=== PATIENT | female | born 1985 | race Caucasian/White ===

== ENCOUNTER 2016-07-06 09:24 | Emergency (ER) | payer BC, OTHER ==
--- NOTE | 2016-07-06 10:44 | EDDOCDS ---
Nurse's Notes [facility] Name: Chapis Crain Age: 31 yrs Sex: Female : 1985 Arrival Date: 07/06/2016 Time: 09:24 Bed TR7 Private MD: Linh Johnson N. Diagnosis: Carpal tunnel syndrome-right greater than left Presentation: 07/06 09:38 Presenting complaint: Patient states: Bilateral hand and arms numbness intermittent in mlb1 both feet began after shoveling snow two days ago. Adult Sepsis Screening: The patient does not have new or worsening altered mentation. Patient's respiratory rate is less than 22. Systolic blood pressure is greater than 100. Patient has a qSOFA score of 0- Negative Sepsis Screen. Suicide/Homicide risk assessment- the patient denies having any suicidal and/or homicidal ideations and does not present with any other emotional, behavioral or mental health complaints. Status: Patient is not a job service specialist or dependent. Transition of care: patient was not received from another setting of care. 09:38 Acuity: VEENA Level 3 mlb1 09:38 Method Of Arrival: Walkin/Carried/Asstd mlb1 Triage Assessment: 09:40 General: Appears in no apparent distress, Behavior is appropriate for age, cooperative. mlb1 Pain: Denies pain. Pt Declines HIV testing. Neurological: Reports bilateral arm and hand numbness. 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 multivitamin Oral tab 1 tablet daily - PMHx: none; - PSHx: partial hysterectomy; Tubal ligation; - Social history: Smoking status: Patient states was never smoker of tobacco. No barriers to communication noted, The patient speaks fluent Nepali, Speaks appropriately for age. - Family history: Not pertinent. - : The pt / caregiver states he / she is not on anticoagulants. Home medication list is obtained from the patient. - Exposure Risk Screening:: None identified. Screenin:42 Screening information is obtained from the patient. Fall risk: No risks identified. mlb1 Assistance ADL's: requires no assistance with activities of daily living. Abuse/DV Screen: The patient / caregiver reports he/she is: not in a situation that causes fear, pain or injury. Nutritional screening: No deficits noted. Advance Directives: Currently, there is no health care proxy. home support is adequate. Assessment: 10:41 General: Appears in no apparent distress, Behavior is appropriate for age, cooperative. mlb1 Pain: Denies pain. Musculoskeletal: Circulation, motion, and sensation intact Capillary refill < 3 seconds is brisk in bilateral fingers Range of motion intact in all extremities. Vital Signs: 09:28 BP 134 / 68 RA Sitting (auto/reg); Pulse 72; Resp 18; Temp 98.5(O); Pulse Ox 100% ; jrd Weight 83.91 kg (R); Height 5 ft. 3 in. (160.02 cm); Pain 0/10; 09:28 Body Mass Index 32.77 (83.91 kg, 160.02 cm) [facility] Vitals: 09:28 Log In Time: July 06, 2016 at 09:20. [facility] ED Course: 09:25 Patient visited by Asa Rodgers PCA. jrd 09:25 Patient moved to Waiting jrd 09:27 Linh Johnson is Private Physician. jrd 09:27 Patient visited by Asa Rodgers PCA. jrd 09:27 Patient moved to Pre RCE jrd 09:29 Patient visited by Asa Rodgers PCA. jrd 09:37 Patient visited by Florentin Mann RN. mlb1 09:39 Triage Initiated mlb1 09:40 Patient visited by Florentin Mann RN. mlb1 09:55 Patient moved to Triage 1 ct3 09:57 [facility] ar2 09:57 Domingo Baron MD is Attending Physician. ar2 10:13 Patient visited by Hamilton Ragsdael PA-C. ar2 10:35 Linh Johnson is Referral Physician. ar2 10:42 Patient moved to TR7 ct3 10:42 No IV's were initiated during this patient's visit. No procedures done that require mlb1 assistance. 10:43 Patient visited by Florentin Mann RN. mlb1 10:43 The patient / caregiver is instructed regarding the plan of care and ED course. mlb1 Order Results: There are currently no results for this order. Outcome: 10:35 Discharge ordered by Provider. ar2 10:43 Discharge Assessment: Patient awake, alert and oriented x 3. No cognitive and/or mlb1 functional deficits noted. Patient verbalized understanding of disposition instructions. patient administered narcotics - no. The following High Risk Discharge criteria are identified: None. Discharged to home ambulatory. Condition: good. Discharge instructions given to patient, Instructed on discharge instructions, follow up and referral plans. medication usage, Demonstrated understanding of instructions, medications, Pt was receptive of discharge instructions/ teaching. Prescriptions given X 1. No special radiology studies were completed. Property sent home with patient. 10:43 Patient left the ED. mlb1 Signatures: Florentin Mann RN RN mlb1 Hamilton Ragsdale, MICH PA-C ar2 Milena Garcia, MEDICAL FRONT DESK COORDINATOR MEDICAL FRONT DESK COORDINATOR ct3 Asa Rodgers, MEDICAL FRONT DESK COORDINATOR MEDICAL FRONT DESK COORDINATOR jrd MTDD
--- NOTE | 2016-07-06 10:44 | EDDOCDS ---
Physician Documentation [facility] Name: Chapis Crain Age: 31 yrs Sex: Female : 1985 Arrival Date: 07/06/2016 Time: 09:24 Bed TR7 Private MD: Linh Johnson N. Disposition: 07/06/16 10:35 Discharged to Home/Self Care. Impression: Carpal tunnel syndrome - right greater than left. - Condition is Stable. - Discharge Instructions: Carpal Tunnel Syndrome. - Prescriptions for Naprosyn 500 mg Oral Tablet - take 1 tablet by ORAL route 2 times per day take with food; 30 tablet. - Medication Reconciliation, Local Pharmacy Hours form. - Follow up: Linh Johnson; When: 1 week; Reason: Recheck today's complaints. Follow up: Emergency Department; When: As needed; Reason: Worsening of conditions. - Problem is new. - Symptoms are unchanged. Historical: - Allergies: Strawberries; - Home Meds: 1. multivitamin Oral tab 1 tablet daily - PMHx: none; - PSHx: partial hysterectomy; Tubal ligation; - Social history: Smoking status: Patient states was never smoker of tobacco. No barriers to communication noted, The patient speaks fluent Icelandic, Speaks appropriately for age. - Family history: Not pertinent. - : The pt / caregiver states he / she is not on anticoagulants. Home medication list is obtained from the patient. - Exposure Risk Screening:: None identified. 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 3 in. (160.02 cm); Pain 0/10; 09:28 Body Mass Index 32.77 (83.91 kg, 160.02 cm) jrd Signatures: Florentin Mann RN RN mlb1 Hamilton Ragsdale PA-C PA-C ar2 MTDD
--- NOTE | 2016-07-08 11:44 | EDDOCDS ---
Physician Documentation [facility] Name: Chapis Crain Age: 31 yrs Sex: Female : 1985 Arrival Date: 07/06/2016 Time: 09:24 Bed TR7 Private MD: Linh Johnson N. Disposition: 07/06/16 10:35 Discharged to Home/Self Care. Impression: Carpal tunnel syndrome - right greater than left. - Condition is Stable. - Discharge Instructions: Carpal Tunnel Syndrome. - Prescriptions for Naprosyn 500 mg Oral Tablet - take 1 tablet by ORAL route 2 times per day take with food; 30 tablet. - Medication Reconciliation, Local Pharmacy Hours form. - Follow up: Linh Johnson; When: 1 week; Reason: Recheck today's complaints. Follow up: Emergency Department; When: As needed; Reason: Worsening of conditions. - Problem is new. - Symptoms are unchanged. Historical: - Allergies: Strawberries; - Home Meds: 1. multivitamin Oral tab 1 tablet daily - PMHx: none; - PSHx: partial hysterectomy; Tubal ligation; - Social history: Smoking status: Patient states was never smoker of tobacco. No barriers to communication noted, The patient speaks fluent Hungarian, Speaks appropriately for age. - Family history: Not pertinent. - : The pt / caregiver states he / she is not on anticoagulants. Home medication list is obtained from the patient. - Exposure Risk Screening:: None identified. 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 3 in. (160.02 cm); Pain 0/10; 09:28 Body Mass Index 32.77 (83.91 kg, 160.02 cm) jrd MDM: 11:01 [facility] Payment Agreement was scanned into [employer] ? and attached to record. lg Signatures: Olman Knutson, Reg Reg lg Florentin Mann RN RN mlb1 Hamilton Ragsdale, KYRIEC PAMikeC ar2 The chart was reviewed and I authenticate all verbal orders and agree with the evaluation and treatment provided.Attachments: 11:01 [facility] Payment Agreement lg Chart Complete MTDD
--- NOTE | 2016-07-08 11:44 | EDDOCDS ---
Physician Documentation [facility] Name: Chapis Crain Age: 31 yrs Sex: Female : 1985 Arrival Date: 07/06/2016 Time: 09:24 Bed TR7 Private MD: Linh Johnson N. Disposition: 07/06/16 10:35 Discharged to Home/Self Care. Impression: Carpal tunnel syndrome - right greater than left. - Condition is Stable. - Discharge Instructions: Carpal Tunnel Syndrome. - Prescriptions for Naprosyn 500 mg Oral Tablet - take 1 tablet by ORAL route 2 times per day take with food; 30 tablet. - Medication Reconciliation, Local Pharmacy Hours form. - Follow up: Linh Johnson; When: 1 week; Reason: Recheck today's complaints. Follow up: Emergency Department; When: As needed; Reason: Worsening of conditions. - Problem is new. - Symptoms are unchanged. Historical: - Allergies: Strawberries; - Home Meds: 1. multivitamin Oral tab 1 tablet daily - PMHx: none; - PSHx: partial hysterectomy; Tubal ligation; - Social history: Smoking status: Patient states was never smoker of tobacco. No barriers to communication noted, The patient speaks fluent Uzbek, Speaks appropriately for age. - Family history: Not pertinent. - : The pt / caregiver states he / she is not on anticoagulants. Home medication list is obtained from the patient. - Exposure Risk Screening:: None identified. 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 3 in. (160.02 cm); Pain 0/10; 09:28 Body Mass Index 32.77 (83.91 kg, 160.02 cm) jrd MDM: 11:01 [facility] Payment Agreement was scanned into [employer] and attached to record. lg Signatures: Olman Knutson, Reg Reg lg Florentin Mann RN RN mlb1 Hamilton Ragsdale, KYRIEC PAMikeC ar2 The chart was reviewed and I authenticate all verbal orders and agree with the evaluation and treatment provided.Attachments: 11:01 [facility] Payment Agreement lg Chart Complete MTDD
--- NOTE | 2016-07-08 11:45 | EDDOCDS ---
Nurse's Notes [facility] Name: Chapis Crain Age: 31 yrs Sex: Female : 1985 Arrival Date: 07/06/2016 Time: 09:24 Bed TR7 Private MD: Linh Johnson N. Diagnosis: Carpal tunnel syndrome-right greater than left Presentation: 07/06 09:38 Presenting complaint: Patient states: Bilateral hand and arms numbness intermittent in mlb1 both feet began after shoveling snow two days ago. Adult Sepsis Screening: The patient does not have new or worsening altered mentation. Patient's respiratory rate is less than 22. Systolic blood pressure is greater than 100. Patient has a qSOFA score of 0- Negative Sepsis Screen. Suicide/Homicide risk assessment- the patient denies having any suicidal and/or homicidal ideations and does not present with any other emotional, behavioral or mental health complaints. Status: Patient is not a central service supply distributor or dependent. Transition of care: patient was not received from another setting of care. 09:38 Acuity: VEENA Level 3 mlb1 09:38 Method Of Arrival: Walkin/Carried/Asstd mlb1 Triage Assessment: 09:40 General: Appears in no apparent distress, Behavior is appropriate for age, cooperative. mlb1 Pain: Denies pain. Pt Declines HIV testing. Neurological: Reports bilateral arm and hand numbness. 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 multivitamin Oral tab 1 tablet daily - PMHx: none; - PSHx: partial hysterectomy; Tubal ligation; - Social history: Smoking status: Patient states was never smoker of tobacco. No barriers to communication noted, The patient speaks fluent Slovak, Speaks appropriately for age. - Family history: Not pertinent. - : The pt / caregiver states he / she is not on anticoagulants. Home medication list is obtained from the patient. - Exposure Risk Screening:: None identified. Screenin:42 Screening information is obtained from the patient. Fall risk: No risks identified. mlb1 Assistance ADL's: requires no assistance with activities of daily living. Abuse/DV Screen: The patient / caregiver reports he/she is: not in a situation that causes fear, pain or injury. Nutritional screening: No deficits noted. Advance Directives: Currently, there is no health care proxy. home support is adequate. Assessment: 10:41 General: Appears in no apparent distress, Behavior is appropriate for age, cooperative. mlb1 Pain: Denies pain. Musculoskeletal: Circulation, motion, and sensation intact Capillary refill < 3 seconds is brisk in bilateral fingers Range of motion intact in all extremities. Vital Signs: 09:28 BP 134 / 68 RA Sitting (auto/reg); Pulse 72; Resp 18; Temp 98.5(O); Pulse Ox 100% ; jrd Weight 83.91 kg (R); Height 5 ft. 3 in. (160.02 cm); Pain 0/10; 09:28 Body Mass Index 32.77 (83.91 kg, 160.02 cm) [facility] Vitals: 09:28 Log In Time: July 06, 2016 at 09:20. [facility] ED Course: 09:25 Patient visited by Asa Rodgers PCA. jrd 09:25 Patient moved to Waiting jrd 09:27 Linh Johnson is Private Physician. jrd 09:27 Patient visited by Asa Rodgers PCA. jrd 09:27 Patient moved to Pre RCE jrd 09:29 Patient visited by Asa Rodgers PCA. jrd 09:37 Patient visited by Florentin Mann RN. mlb1 09:39 Triage Initiated mlb1 09:40 Patient visited by Florentin Mann RN. mlb1 09:55 Patient moved to Triage 1 ct3 09:57 Hamilton Ragsdale [facility] ar2 09:57 Domingo Baron MD is Attending Physician. ar2 10:13 Patient visited by Hamilton Ragsdale PA-C. ar2 10:35 Linh Johnson is Referral Physician. ar2 10:42 Patient moved to TR7 ct3 10:42 No IV's were initiated during this patient's visit. No procedures done that require mlb1 assistance. 10:43 Patient visited by Florentin Mann RN. mlb1 10:43 The patient / caregiver is instructed regarding the plan of care and ED course. mlb1 11:01 [facility] [place] was [place] into [employer] and attached to record. lg Order Results: There are currently no results for this order. Outcome: 10:35 Discharge ordered by Provider. ar2 10:43 Discharge Assessment: Patient awake, alert and oriented x 3. No cognitive and/or mlb1 functional deficits noted. Patient verbalized understanding of disposition instructions. patient administered narcotics - no. The following High Risk Discharge criteria are identified: None. Discharged to home ambulatory. Condition: good. Discharge instructions given to patient, Instructed on discharge instructions, follow up and referral plans. medication usage, Demonstrated understanding of instructions, medications, Pt was receptive of discharge instructions/ teaching. Prescriptions given X 1. No special radiology studies were completed. Property sent home with patient. 10:43 Patient left the ED. mlb1 Signatures: Olman Knutson, Reg Reg lg Florentin Mann RN RN mlb1 Hamilton Ragsdale, PA-C PA-C ar2 Milena Garcia, CANT HOOKER CANT HOOKER ct3 Asa Rodgers, CANT HOOKER CANT HOOKER jrd Chart Complete MTDD
--- NOTE | 2016-07-20 10:26 | EDDOCDS ---
Physician Documentation [facility] Name: Chapis Crain Age: 31 yrs Sex: Female : 1985 Arrival Date: 07/06/2016 Time: 09:24 Bed TR7 Private MD: Linh Johnson N. Disposition: 07/06/16 10:35 Discharged to Home/Self Care. Impression: Carpal tunnel syndrome - right greater than left. - Condition is Stable. - Discharge Instructions: Carpal Tunnel Syndrome. - Prescriptions for Naprosyn 500 mg Oral Tablet - take 1 tablet by ORAL route 2 times per day take with food; 30 tablet. - Medication Reconciliation, Local Pharmacy Hours form. - Follow up: Linh Johnson; When: 1 week; Reason: Recheck today's complaints. Follow up: Emergency Department; When: As needed; Reason: Worsening of conditions. - Problem is new. - Symptoms are unchanged. Historical: - Allergies: Strawberries; - Home Meds: 1. multivitamin Oral tab 1 tablet daily - PMHx: none; - PSHx: partial hysterectomy; Tubal ligation; - Social history: Smoking status: Patient states was never smoker of tobacco. No barriers to communication noted, The patient speaks fluent Kyrgyz, Speaks appropriately for age. - Family history: Not pertinent. - : The pt / caregiver states he / she is not on anticoagulants. Home medication list is obtained from the patient. - Exposure Risk Screening:: None identified. 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 3 in. (160.02 cm); Pain 0/10; 09:28 Body Mass Index 32.77 (83.91 kg, 160.02 cm) jrd MDM: 11:01 [facility] Payment Agreement was scanned into [employer] and attached to record. lg Signatures: Olman Knutson, Reg Reg lg Florentin Mann RN RN mlb1 Hamilton Ragsdale, KYRIEC PAMikeC ar2 The chart was reviewed and I authenticate all verbal orders and agree with the evaluation and treatment provided.Attachments: 11:01 [facility] Payment Agreement lg Chart Complete MTDD
--- NOTE | 2016-07-20 10:26 | EDDOCDS ---
Nurse's Notes [facility] Name: Chapis Crain Age: 31 yrs Sex: Female : 1985 Arrival Date: 07/06/2016 Time: 09:24 Bed TR7 Private MD: Linh Johnson N. Diagnosis: Carpal tunnel syndrome-right greater than left Presentation: 07/06 09:38 Presenting complaint: Patient states: Bilateral hand and arms numbness intermittent in mlb1 both feet began after shoveling snow two days ago. Adult Sepsis Screening: The patient does not have new or worsening altered mentation. Patient's respiratory rate is less than 22. Systolic blood pressure is greater than 100. Patient has a qSOFA score of 0- Negative Sepsis Screen. Suicide/Homicide risk assessment- the patient denies having any suicidal and/or homicidal ideations and does not present with any other emotional, behavioral or mental health complaints. Status: Patient is not a director of child welfare services or dependent. Transition of care: patient was not received from another setting of care. 09:38 Acuity: VEENA Level 3 mlb1 09:38 Method Of Arrival: Walkin/Carried/Asstd mlb1 Triage Assessment: 09:40 General: Appears in no apparent distress, Behavior is appropriate for age, cooperative. mlb1 Pain: Denies pain. Pt Declines HIV testing. Neurological: Reports bilateral arm and hand numbness. 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 multivitamin Oral tab 1 tablet daily - PMHx: none; - PSHx: partial hysterectomy; Tubal ligation; - Social history: Smoking status: Patient states was never smoker of tobacco. No barriers to communication noted, The patient speaks fluent Mongolian, Speaks appropriately for age. - Family history: Not pertinent. - : The pt / caregiver states he / she is not on anticoagulants. Home medication list is obtained from the patient. - Exposure Risk Screening:: None identified. Screenin:42 Screening information is obtained from the patient. Fall risk: No risks identified. mlb1 Assistance ADL's: requires no assistance with activities of daily living. Abuse/DV Screen: The patient / caregiver reports he/she is: not in a situation that causes fear, pain or injury. Nutritional screening: No deficits noted. Advance Directives: Currently, there is no health care proxy. home support is adequate. Assessment: 10:41 General: Appears in no apparent distress, Behavior is appropriate for age, cooperative. mlb1 Pain: Denies pain. Musculoskeletal: Circulation, motion, and sensation intact Capillary refill < 3 seconds is brisk in bilateral fingers Range of motion intact in all extremities. Vital Signs: 09:28 BP 134 / 68 RA Sitting (auto/reg); Pulse 72; Resp 18; Temp 98.5(O); Pulse Ox 100% ; jrd Weight 83.91 kg (R); Height 5 ft. 3 in. (160.02 cm); Pain 0/10; 09:28 Body Mass Index 32.77 (83.91 kg, 160.02 cm) [facility] Vitals: 09:28 Log In Time: July 06, 2016 at 09:20. [facility] ED Course: 09:25 Patient visited by Asa Rodgers PCA. jrd 09:25 Patient moved to Waiting jrd 09:27 Linh Johnson is Private Physician. jrd 09:27 Patient visited by Asa Rodgers PCA. jrd 09:27 Patient moved to Pre RCE jrd 09:29 Patient visited by Asa Rodgers PCA. jrd 09:37 Patient visited by Florentin Mann RN. mlb1 09:39 Triage Initiated mlb1 09:40 Patient visited by Florentin Mann RN. mlb1 09:55 Patient moved to Triage 1 ct3 09:57 Hamilton [facility] ar2 09:57 Domingo Baron MD is Attending Physician. ar2 10:13 Patient visited by Hamilton Ragsdale PA-C. ar2 10:35 Linh Johnson is Referral Physician. ar2 10:42 Patient moved to TR7 ct3 10:42 No IV's were initiated during this patient's visit. No procedures done that require mlb1 assistance. 10:43 Patient visited by Florentin Mann RN. mlb1 10:43 The patient / caregiver is instructed regarding the plan of care and ED course. mlb1 11:01 [facility] [place] was scanned into [employer] and attached to record. lg Order Results: There are currently no results for this order. Outcome: 10:35 Discharge ordered by Provider. ar2 10:43 Discharge Assessment: Patient awake, alert and oriented x 3. No cognitive and/or mlb1 functional deficits noted. Patient verbalized understanding of disposition instructions. patient administered narcotics - no. The following High Risk Discharge criteria are identified: None. Discharged to home ambulatory. Condition: good. Discharge instructions given to patient, Instructed on discharge instructions, follow up and referral plans. medication usage, Demonstrated understanding of instructions, medications, Pt was receptive of discharge instructions/ teaching. Prescriptions given X 1. No special radiology studies were completed. Property sent home with patient. 10:43 Patient left the ED. mlb1 Signatures: Olman Knutson, Reg Reg lg Florentin Mann RN RN mlb1 Hamilton Ragsdale, PA-C PA-C ar2 Milena Garcia, LABORATORY SAMPLER LABORATORY SAMPLER ct3 Asa Rodgers, LABORATORY SAMPLER LABORATORY SAMPLER jrd Chart Complete MTDD
--- NOTE | 2016-07-20 10:26 | EDDOCDS ---
Physician Documentation [facility] Name: Chapis Crain Age: 31 yrs Sex: Female : 1985 Arrival Date: 07/06/2016 Time: 09:24 Bed TR7 Private MD: Linh Johnson N. Disposition: 07/06/16 10:35 Discharged to Home/Self Care. Impression: Carpal tunnel syndrome - right greater than left. - Condition is Stable. - Discharge Instructions: Carpal Tunnel Syndrome. - Prescriptions for Naprosyn 500 mg Oral Tablet - take 1 tablet by ORAL route 2 times per day take with food; 30 tablet. - Medication Reconciliation, Local Pharmacy Hours form. - Follow up: Linh Johnson; When: 1 week; Reason: Recheck today's complaints. Follow up: Emergency Department; When: As needed; Reason: Worsening of conditions. - Problem is new. - Symptoms are unchanged. Historical: - Allergies: Strawberries; - Home Meds: 1. multivitamin Oral tab 1 tablet daily - PMHx: none; - PSHx: partial hysterectomy; Tubal ligation; - Social history: Smoking status: Patient states was never smoker of tobacco. No barriers to communication noted, The patient speaks fluent Macedonian, Speaks appropriately for age. - Family history: Not pertinent. - : The pt / caregiver states he / she is not on anticoagulants. Home medication list is obtained from the patient. - Exposure Risk Screening:: None identified. [employer]: 07/06 09:40 LMP N/A - Hysterectomy mlb1 Vital Signs: 09:28 BP 134 / 68 RA Sitting (auto/reg); Pulse 72; Resp 18; Temp 98.5(O); Pulse Ox 100% ; jrd Weight 83.91 kg / 184.99 lbs (R); Height 5 ft. 3 in. (160.02 cm); Pain 0/10; 09:28 Body Mass Index 32.77 (83.91 kg, 160.02 cm) jrd MDM: 11:01 [facility] Payment Agreement was scanned into [employer] and attached to record. lg Signatures: Olman Knutson, Reg Reg lg Florentin Mann RN RN mlb1 Hamilton Ragsdale, KYRIEC PAMikeC ar2 The chart was reviewed and I authenticate all verbal orders and agree with the evaluation and treatment provided.Attachments: 11:01 [facility] Payment Agreement lg Chart Complete MTDD
== END 2016-07-06 10:43 | disposition home or self-care (01) ==
LOC: M ED 09:24
DX: G56.03 Carpal tunnel syndrome, bilateral upper limbs (principal); Z91.018 Allergy to other foods

== ENCOUNTER → 2017-03-13 | Outpatient (REF) | payer BC, OTHER ==
[2017-03-13 13:21] LABS: ALBUMIN 3.8 GM/DL (3.2-5.2); ALBUMIN/GLOBULIN RATIO 1.27 (1.00-1.93); ALKALINE PHOSPHATASE 57 U/L (45-117); ALT/SGPT 21 U/L (12-78); ANION GAP 7 MEQ/L (8-16); AST/SGOT 6 U/L (15-37); BILIRUBIN,TOTAL 0.8 MG/DL (0.2-1.0); BLOOD UREA NITROGEN 15 MG/DL (7-18); CARBON DIOXIDE LEVEL 28 MEQ/L (21-32); CHLORIDE LEVEL 105 MEQ/L (98-107); CHOLESTEROL LEVEL 221 MG/DL (<200); CREATININE FOR GFR 0.54 MG/DL (0.55-1.02); GLOMERULAR FILTRATION RATE > 60.0 (>60); GLUCOSE, FASTING 90 MG/DL (70-105); POTASSIUM SERUM 4.8 MEQ/L (3.5-5.1); SODIUM LEVEL 140 MEQ/L (136-145); TOTAL PROTEIN 6.8 GM/DL (6.4-8.2); TRIGLYCERIDES LEVEL 100 MG/DL (<150)
== END ==
LOC: M SFHCADAM 10:44
PROVIDERS: ATTEND Physician Assistant Medical
DX: E66.09 Other obesity due to excess calories (principal)

== ENCOUNTER 2017-03-17 19:32 | Emergency (ER) | payer BC, OTHER ==
[~2017-03-17] VITALS: Ht 157.5 cm; Wt 88.6 kg
[2017-03-17 21:08] LABS: BASO % 0.2 % (0.0-1.0); EOS # 0.1 10^3/uL (0.0-0.50); EOS % 0.8 % (0.0-3.0); IMMATURE GRANULOCYTE % 0.3 % (0-0); LYMPH % 20.3 % (24.0-44.0); MEAN CORPUSCULAR HEMOGLOBIN 29.8 pg (27.0-33.0); MEAN CORPUSCULAR HGB CONC 33.5 g/dl (32.0-36.5); MEAN CORPUSCULAR VOLUME 88.9 fl (80.0-96.0); MONO # 0.6 10^3/uL (0.0-0.8); MONO % 5.6 % (0.0-5.0); NEUTROPHILS # 7.2 10^3/uL (1.8-7.7); NEUTROPHILS % 72.8 % (36.0-66.0); PLATELET COUNT, AUTOMATED 269 10^3/uL (150-450); RED CELL DISTRIBUTION WIDTH 12.1 % (11.5-14.5); WHITE BLOOD COUNT 9.9 10^3/uL (4.0-10.0)
[2017-03-17 21:39] LABS: ANION GAP 5 MEQ/L (8-16); BLOOD UREA NITROGEN 18 MG/DL (7-18); CALCIUM LEVEL 8.8 MG/DL (8.5-10.1); CARBON DIOXIDE LEVEL 29 MEQ/L (21-32); CHLORIDE LEVEL 107 MEQ/L (98-107); CREATININE FOR GFR 0.46 MG/DL (0.55-1.02); GLOMERULAR FILTRATION RATE > 60.0 (>60); GLUCOSE, FASTING 119 MG/DL (70-105); POTASSIUM SERUM 3.5 MEQ/L (3.5-5.1); SODIUM LEVEL 141 MEQ/L (136-145)
[2017-03-17 21:46] LABS: ABG BASE EXCESS 0.9 (-2.0-2.0); ABG HCO3 25.1 MEQ/L (22.0-26.0); ABG PARTIAL PRESSURE CO2 38.6 mmHg (35.0-45.0); ABG STANDARD HCO3 25.3 MEQ/L (22.0-26.0); ABG TOTAL CO2 26.3 MEQ/L (22.0-29.0); ABG pH (ARTERIAL) 7.431 UNITS (7.350-7.450)
[2017-03-17 22:19] VITALS: BP 134/81
--- NOTE | 2017-03-18 05:59 | ECGEPIP ---
Stationary ECG Study [facility] [place] - ED Test Date: 2017-03-17 Pat Name: SHAHRZAD PRICE Department: Room: - Gender: F [employer]: leonel : 1985 Requested By: PIPPA MCCARTY Order Number: [id number] Reading MD: Baltazar Prasad Measurements Intervals [place] Rate: 82 P: 13 FL: 158 QRS: 44 QRSD: 103 T: 17 QT: 363 QTc: 424 Interpretive Statements SINUS RHYTHM WITH SINUS ARRHYTHMIA ST DEVIATION AND MODERATE T-WAVE ABNORMALITY, CONSIDER ANTERIOR ISCHEMIA NO PRIORS Electronically Signed On 03-18-2017 5:59:38 EDT by Baltazar Prasad
--- NOTE | 2017-03-18 08:21 | REP ---
PA and lateral chest: The lung dia are clear. The cardiac size is normal The saul, mediastinum, and bony thorax are unremarkable. Impression: Negative PA and lateral chest. Signed by Diomedes Higginbotham MD 03/18/2017 08:12 A
== END 2017-03-17 22:26 | disposition home or self-care (01) ==
LOC: M ED 19:32
DX: R00.2 Palpitations (principal); Z91.018 Allergy to other foods

== ENCOUNTER → 2017-03-20 | Outpatient (REF) | payer OTHER ==
[2017-03-20 21:46] LABS: FREE T4 1.01 NG/DL (0.76-1.46)
== END ==
LOC: M SFHCADAM 13:31
PROVIDERS: ATTEND Physician Assistant Medical
DX: R00.2 Palpitations (principal)

== ENCOUNTER 2017-07-02 21:11 | Emergency (ER) | payer BC, OTHER ==
[2017-07-02] MEDS: IBUPROFEN 400 MG TAB PO (21:42)
[2017-07-02] MEDS: PERCOCET 5MG/325MG TAB PO (21:42)
[2017-07-02] MEDS: NORCO 5/325MG TABLET (BULK FOR ED) PO (22:37)
== END 2017-07-02 22:45 | disposition home or self-care (01) ==
LOC: M ED 21:11
DX: S83.412A Sprain of medial collateral ligament of left knee, initial encounter (principal); X50.9XXA Other and unspecified overexertion or strenuous movements or postures, initial encounter; Y92.009 Unspecified place in unspecified non-institutional (private) residence as the place of occurrence of the external cause; Z91.018 Allergy to other foods
CPT/HCPCS: 73564

== ENCOUNTER → 2018-04-17 | Outpatient (REF) | payer OTHER | LOC: M LAB REF 16:24 | DX: R30.0 Dysuria (principal) | CPT/HCPCS: 87086 ==

== ENCOUNTER → 2018-05-13 | Outpatient (REF) | payer OTHER ==
[~2018-05-13] MED LIST: NORCOTAB PO; VITA50005
== END ==
LOC: M LAB REF 12:30
PROVIDERS: ATTEND Physician Assistant Medical
DX: J02.9 Acute pharyngitis, unspecified (principal)

== ENCOUNTER → 2018-06-06 | Outpatient (REF) | payer OTHER ==
[2018-06-06 13:04] LABS: ALBUMIN 3.9 GM/DL (3.2-5.2); ALT/SGPT 26 U/L (12-78); BILIRUBIN,TOTAL 1.1 MG/DL (0.2-1.0); BLOOD UREA NITROGEN 13 MG/DL (7-18); CALCIUM LEVEL 8.7 MG/DL (8.5-10.1); CARBON DIOXIDE LEVEL 26 MEQ/L (21-32); CHLORIDE LEVEL 106 MEQ/L (98-107); CHOLESTEROL LEVEL 218 MG/DL (<200); CHOLESTEROL RISK RATIO 5.317 (<5); CREATININE FOR GFR 0.59 MG/DL (0.55-1.30); GLOMERULAR FILTRATION RATE > 60.0 (>60); GLUCOSE, FASTING 89 MG/DL (70-100); HDL CHOLESTEROL 41 MG/DL (>40); LDL CHOLESTEROL 148 MG/DL (<100); NON-HDL-C 177 MG/DL; POTASSIUM SERUM 3.9 MEQ/L (3.5-5.1); SODIUM LEVEL 139 MEQ/L (136-145); TOTAL PROTEIN 6.5 GM/DL (6.4-8.2); TRIGLYCERIDES LEVEL 145 MG/DL (<150)
[2018-06-06 13:12] LABS: TOTAL 25(OH) VITAMIN D 16.2 NG/ML (30.0-100.0)
== END ==
LOC: M SFHCADAM 08:15
PROVIDERS: ATTEND Physician Assistant Medical
DX: E55.9 Vitamin D deficiency, unspecified (principal); E78.2 Mixed hyperlipidemia

== ENCOUNTER → 2018-09-25 | Outpatient (REF) | payer OTHER ==
[~2018-09-25] MED LIST changes: +HYDR-3715 PO; -NORCOTAB PO
== END ==
LOC: M LAB REF 19:13
PROVIDERS: ATTEND Physician Assistant Medical
DX: J02.9 Acute pharyngitis, unspecified (principal)

== ENCOUNTER → 2018-10-08 | Outpatient (REF) | payer OTHER ==
[2018-10-08 13:57] LABS: ALT/SGPT 22 U/L (12-78); BILIRUBIN,TOTAL 0.6 MG/DL (0.2-1.0); BLOOD UREA NITROGEN 14 MG/DL (7-18); CALCIUM LEVEL 8.3 MG/DL (8.5-10.1); CARBON DIOXIDE LEVEL 27 MEQ/L (21-32); CHLORIDE LEVEL 108 MEQ/L (98-107); CREATININE FOR GFR 0.56 MG/DL (0.55-1.30); GLOMERULAR FILTRATION RATE > 60.0 (>60); GLUCOSE, FASTING 92 MG/DL (70-100); POTASSIUM SERUM 4.1 MEQ/L (3.5-5.1); SODIUM LEVEL 141 MEQ/L (136-145)
[2018-10-08 13:58] LABS: ALBUMIN 3.8 GM/DL (3.2-5.2); CHOLESTEROL LEVEL 207 MG/DL (<200); CHOLESTEROL RISK RATIO 5.175 (<5); HDL CHOLESTEROL 40 MG/DL (>40); LDL CHOLESTEROL 132 MG/DL (<100); NON-HDL-C 167 MG/DL; TOTAL PROTEIN 6.3 GM/DL (6.4-8.2); TRIGLYCERIDES LEVEL 174 MG/DL (<150)
[2018-10-08 14:08] LABS: TOTAL 25(OH) VITAMIN D 18.8 NG/ML (30.0-100.0)
[2018-10-08 14:19] LABS: RUBELLA IgG QUALITATIVE IMMUNE (IMMUNE)
[2018-10-09 14:16] LABS: HERPES ZOSTER, VARICELLA IgG 1051 index (Immune >165); MUMPS VIRUS IgG ANTIBODY 30.5 AU/mL (Immune >10.9); RUBEOLA IgG ANTIBODY >300.0 AU/mL (Immune >29.9)
== END ==
LOC: M SFHCADAM 10:49
PROVIDERS: ATTEND Physician Assistant Medical
DX: Z20.820 Contact with and (suspected) exposure to varicella (principal); Z20.828 Contact with and (suspected) exposure to other viral communicable diseases; E55.9 Vitamin D deficiency, unspecified; E78.2 Mixed hyperlipidemia

== ENCOUNTER → 2019-10-31 | Outpatient (CLI) | payer BC, OTHER | LOC: M LABSMTC 10:15 | PROVIDERS: ATTEND Pediatrics | DX: Z03.818 Encounter for observation for suspected exposure to other biological agents ruled out (principal); Z11.59 Encounter for screening for other viral diseases ==

== ENCOUNTER 2019-11-24 20:23 | Emergency (ER) | payer BC, OTHER ==
[~2019-11-24] VITALS: Ht 157.5 cm; Wt 86.4 kg
[2019-11-24] MEDS ORDERED: IBUPROFEN 800 MG TAB PO ONE (21:00)
[2019-11-24 21:54] VITALS: BP 129/95
--- NOTE | 2019-11-24 22:36 | REP ---
Clinical: Trauma. Technique: AP, lateral, bilateral oblique and sunrise views left knee. Comparison: 07/02/2017 . Findings: Degenerative changes involving the patella and patellofemoral joint space noted. The osseous structures and joint spaces are otherwise intact and normal. There is no evidence for acute fracture or dislocation. No joint effusion is appreciated. Surrounding soft tissues are unremarkable. No subcutaneous emphysema or radiodense foreign body. Impression: Degenerative changes involving the patella and patellofemoral joint space. No acute fracture or dislocation. Electronically Signed by Nilay Ferreira MD 11/24/2019 10:27 P
== END 2019-11-24 21:56 | disposition home or self-care (01) ==
LOC: M ED 20:23
DX: S89.92XA Unspecified injury of left lower leg, initial encounter (principal); W19.XXXA Unspecified fall, initial encounter; Y92.512 Supermarket, store or market as the place of occurrence of the external cause; Z91.018 Allergy to other foods; Z79.899 Other long term (current) drug therapy

== ENCOUNTER → 2020-02-07 | Outpatient (CLI) | payer SELFPAY | LOC: M LABSMTC 12:37 | PROVIDERS: ATTEND Pediatrics | DX: Z11.59 Encounter for screening for other viral diseases (principal) ==

== ENCOUNTER → 2020-08-19 | Outpatient (REF) | payer OTHER ==
[2020-08-19 12:55] LABS: BASO % 0.5 % (0.0-1.0); EOS % 0.6 % (0.0-3.0); HEMATOCRIT 41.7 % (36.0-47.0); HEMOGLOBIN 13.3 g/dl (12.0-15.5); LYMPH # 1.6 10^3/uL (1.5-5.0); LYMPH % 25.7 % (24.0-44.0); MEAN CORPUSCULAR HEMOGLOBIN 29.5 pg (27.0-33.0); MEAN CORPUSCULAR HGB CONC 31.9 g/dl (32.0-36.5); MEAN CORPUSCULAR VOLUME 92.5 fl (80.0-96.0); MONO # 0.5 10^3/uL (0.0-0.8); MONO % 7.2 % (2.0-8.0); NEUTROPHILS # 4.2 10^3/uL (1.5-8.5); NEUTROPHILS % 65.7 % (36.0-66.0); PLATELET COUNT, AUTOMATED 286 10^3/uL (150-450); RED BLOOD COUNT 4.51 10^6/uL (4.00-5.40); WHITE BLOOD COUNT 6.4 10^3/uL (4.0-10.0)
[2020-08-19 13:25] LABS: ALBUMIN 3.7 GM/DL (3.2-5.2); ALT/SGPT 69 U/L (12-78); BLOOD UREA NITROGEN 12 MG/DL (7-18); CALCIUM LEVEL 8.6 MG/DL (8.5-10.1); CARBON DIOXIDE LEVEL 27 MEQ/L (21-32); CHLORIDE LEVEL 107 MEQ/L (98-107); CHOLESTEROL LEVEL 199 MG/DL (<200); CHOLESTEROL RISK RATIO 4.975 (<5); CREATININE FOR GFR 0.49 MG/DL (0.55-1.30); FREE T4 1.09 NG/DL (0.76-1.46); GLOMERULAR FILTRATION RATE > 60.0 (>60); GLUCOSE, FASTING 80 MG/DL (70-100); HDL CHOLESTEROL 40 MG/DL (>40); LDL CHOLESTEROL 145 MG/DL (<100); NON-HDL-C 159 MG/DL; POTASSIUM SERUM 4.3 MEQ/L (3.5-5.1); SODIUM LEVEL 140 MEQ/L (136-145); TOTAL 25(OH) VITAMIN D 23.6 NG/ML (30.0-100.0); TOTAL PROTEIN 6.3 GM/DL (6.4-8.2); TRIGLYCERIDES LEVEL 68 MG/DL (<150)
== END ==
LOC: M SFHCADAM 09:50
PROVIDERS: ATTEND Physician Assistant Medical
DX: E66.09 Other obesity due to excess calories (principal); E55.9 Vitamin D deficiency, unspecified; E78.2 Mixed hyperlipidemia

== ENCOUNTER → 2021-09-22 | Outpatient (REF) | payer OTHER ==
[2021-09-22 13:26] LABS: BASO # 0.1 10^3/uL (0.0-0.2); BASO % 0.7 % (0.0-1.0); EOS # 0.1 10^3/uL (0.0-0.5); EOS % 0.7 % (0.0-3.0); HEMATOCRIT 42.5 % (36.0-47.0); HEMOGLOBIN 13.8 g/dl (12.0-15.5); LYMPH # 1.5 10^3/uL (1.5-5.0); LYMPH % 22.6 % (24.0-44.0); MEAN CORPUSCULAR HEMOGLOBIN 29.1 pg (27.0-33.0); MEAN CORPUSCULAR HGB CONC 32.5 g/dl (32.0-36.5); MEAN CORPUSCULAR VOLUME 89.7 fl (80.0-96.0); MONO # 0.5 10^3/uL (0.0-0.8); MONO % 7.2 % (2.0-8.0); NEUTROPHILS # 4.7 10^3/uL (1.5-8.5); NEUTROPHILS % 68.5 % (36.0-66.0); PLATELET COUNT, AUTOMATED 290 10^3/uL (150-450); RED BLOOD COUNT 4.74 10^6/uL (4.00-5.40); WHITE BLOOD COUNT 6.8 10^3/uL (4.0-10.0)
[2021-09-22 13:36] LABS: ALT/SGPT 29 U/L (12-78); BILIRUBIN,TOTAL 0.7 MG/DL (0.2-1.0); BLOOD UREA NITROGEN 15 MG/DL (7-18); CALCIUM LEVEL 9.1 MG/DL (8.5-10.1); CARBON DIOXIDE LEVEL 29 MEQ/L (21-32); CHLORIDE LEVEL 107 MEQ/L (98-107); CHOLESTEROL LEVEL 188 MG/DL (<200); CREATININE FOR GFR 0.61 MG/DL (0.55-1.30); GLOMERULAR FILTRATION RATE > 60.0 (>60); GLUCOSE, FASTING 94 MG/DL (70-100); HDL CHOLESTEROL 46 MG/DL (>40); POTASSIUM SERUM 4.5 MEQ/L (3.5-5.1); SODIUM LEVEL 140 MEQ/L (136-145); TRIGLYCERIDES LEVEL 85 MG/DL (<150)
[2021-09-22 13:37] LABS: ALBUMIN 3.9 GM/DL (3.2-5.2); CHOLESTEROL RISK RATIO 4.086 (<5); LDL CHOLESTEROL 125 MG/DL (<100); NON-HDL-C 142 MG/DL; TOTAL 25(OH) VITAMIN D 19.4 NG/ML (30.0-100.0); TOTAL PROTEIN 6.5 GM/DL (6.4-8.2)
== END ==
LOC: M SFHCADAM 07:45
PROVIDERS: ATTEND Physician Assistant Medical
DX: E66.09 Other obesity due to excess calories (principal); E55.9 Vitamin D deficiency, unspecified; E78.2 Mixed hyperlipidemia

== ENCOUNTER 2022-07-31 19:34 | Emergency (ER) | payer BC, OTHER ==
[~2022-07-31] VITALS: Ht 157.5 cm; Wt 93.1 kg
[2022-07-31] MEDS ORDERED: ALBUTEROL 90 MCG/ACT 8GM HFA INHALER INH ONE (21:05)
[2022-07-31 21:30] LABS: BASO % 0.4 % (0.0-1.0); EOS # 0.2 10^3/uL (0.0-0.5); EOS % 1.6 % (0.0-3.0); HEMATOCRIT 41.5 % (36.0-47.0); HEMOGLOBIN 13.5 g/dl (12.0-15.5); LYMPH # 2.5 10^3/uL (1.5-5.0); LYMPH % 27.1 % (24.0-44.0); MEAN CORPUSCULAR HEMOGLOBIN 29.4 pg (27.0-33.0); MEAN CORPUSCULAR HGB CONC 32.5 g/dl (32.0-36.5); MEAN CORPUSCULAR VOLUME 90.4 fl (80.0-96.0); MONO # 0.5 10^3/uL (0.0-0.8); MONO % 5.2 % (2.0-8.0); NEUTROPHILS # 6.1 10^3/uL (1.5-8.5); NEUTROPHILS % 65.4 % (36.0-66.0); PLATELET COUNT, AUTOMATED 345 10^3/uL (150-450); RED BLOOD COUNT 4.59 10^6/uL (4.00-5.40); WHITE BLOOD COUNT 9.3 10^3/uL (4.0-10.0)
[2022-07-31 22:00] LABS: BLOOD UREA NITROGEN 12 MG/DL (9-23); CALCIUM LEVEL 8.7 MG/DL (8.5-10.1); CARBON DIOXIDE LEVEL 27 MMOL/L (20-31); CHLORIDE LEVEL 104 MMOL/L (98-107); CK-MB VALUE MASS < 1.0 NG/ML (<3.6); CREATININE FOR GFR 0.53 MG/DL (0.55-1.30); GLOMERULAR FILTRATION RATE > 60.0 (>60); GLUCOSE, FASTING 111 MG/DL (60-100); POTASSIUM SERUM 4.2 MMOL/L (3.5-5.1); SODIUM LEVEL 140 MMOL/L (136-145)
[2022-07-31 22:02] LABS: CPK CREATINE PHOSPHOKINASE 42 U/L (34-145); MB/CK RELATIVE INDEX 2.38 (< OR =4)
[2022-07-31 22:03] LABS: RSV AMPLIFICATION NEGATIVE (NEGATIVE)
[2022-07-31] MEDS ORDERED: MUCI600T31 PO (22:48)
[2022-07-31] MEDS ORDERED: BENZ200C70 PO (22:48)
[2022-07-31 22:49] VITALS: BP 132/74
== END 2022-07-31 22:56 | disposition home or self-care (01) ==
LOC: M ED 19:34
DX: J20.9 Acute bronchitis, unspecified (principal); E55.9 Vitamin D deficiency, unspecified; Z90.710 Acquired absence of both cervix and uterus; Z91.018 Allergy to other foods; Z79.899 Other long term (current) drug therapy

== ENCOUNTER → 2023-06-20 | Outpatient (REF) | payer OTHER ==
[~2023-06-20] MED LIST changes: +BENZ200C70 PO; +MUCI600T31 PO
[2023-06-20 14:36] LABS: THYROID STIMULATING HORMONE 2.052 uIU/ML (0.55-4.78)
[2023-06-20 14:37] LABS: TOTAL 25(OH) VITAMIN D 33.2 NG/ML (20.0-100.0)
[2023-06-20 14:39] LABS: ALBUMIN 3.5 G/DL (3.2-5.2); ALKALINE PHOSPHATASE 45 U/L (46-116); ALT/SGPT 11 U/L (7.0-40); AST/SGOT < 8 U/L (<34); BASO % 0.5 % (0.0-1.0); BILIRUBIN,TOTAL 0.6 MG/DL (0.3-1.2); BLOOD UREA NITROGEN 16 MG/DL (9-23); CALCIUM LEVEL 8.8 MG/DL (8.5-10.1); CARBON DIOXIDE LEVEL 30 MMOL/L (20-31); CHLORIDE LEVEL 109 MMOL/L (98-107); CHOLESTEROL LEVEL 176 MG/DL (<200); CREATININE FOR GFR 0.59 MG/DL (0.55-1.30); GLOMERULAR FILTRATION RATE > 60.0 (>58); GLUCOSE, FASTING 84 MG/DL (60-100); HDL CHOLESTEROL 50.2 MG/DL (>40); HEMATOCRIT 44.2 % (36.0-47.0); HEMOGLOBIN 13.9 g/dl (12.0-15.5); LDL CHOLESTEROL 111.4 MG/DL (<100); LYMPH # 1.3 10^3/uL (1.5-5.0); LYMPH % 30.4 % (24.0-44.0); MEAN CORPUSCULAR HEMOGLOBIN 29.9 pg (27.0-33.0); MEAN CORPUSCULAR HGB CONC 31.4 g/dl (32.0-36.5); MEAN CORPUSCULAR VOLUME 95.1 fl (80.0-96.0); MONO # 0.4 10^3/uL (0.0-0.8); NEUTROPHILS # 2.4 10^3/uL (1.5-8.5); NEUTROPHILS % 57.9 % (36.0-66.0); NON-HDL-C 125.8 MG/DL; PLATELET COUNT, AUTOMATED 251 10^3/uL (150-450); POTASSIUM SERUM 4.4 MMOL/L (3.5-5.1); RED BLOOD COUNT 4.65 10^6/uL (4.00-5.40); SODIUM LEVEL 143 MMOL/L (136-145); TOTAL PROTEIN 5.9 G/DL (5.7-8.2); TRIGLYCERIDES LEVEL 72 MG/DL (<150); WHITE BLOOD COUNT 4.1 10^3/uL (4.0-10.0)
== END ==
LOC: M SFHCADAM 07:20
PROVIDERS: ATTEND Physician Assistant Medical
DX: Z00.00 Encounter for general adult medical examination without abnormal findings (principal); E66.09 Other obesity due to excess calories; E55.9 Vitamin D deficiency, unspecified; E78.2 Mixed hyperlipidemia

== ENCOUNTER → 2024-03-08 | Outpatient (CLI) | payer BC | LOC: M WHC 07:55 | PROVIDERS: ATTEND Physician Assistant Medical | DX: Z12.31 Encounter for screening mammogram for malignant neoplasm of breast (principal) ==

== ENCOUNTER → 2024-03-19 | Outpatient (CLI) | payer BC | LOC: M WHC 12:01 | PROVIDERS: ATTEND Physician Assistant Medical | DX: Z12.31 Encounter for screening mammogram for malignant neoplasm of breast (principal) ==